=== PATIENT | female | born 1965 | race Caucasian/White ===

== ENCOUNTER 2024-05-18 06:06 | Inpatient (IN) | payer BC, MEDICAID ==
[~2024-05-18] VITALS: Ht 160 cm; Wt 100.7 kg
[~2024-05-18 06:06] MED LIST: ALEN35TA18 PO; BACL10TA PO; CYA100I IM; CYAN100T7 PO; DIPH50TA15 PO; DOCU-94 PO; ERGO400T PO; ESCI1TAB37 PO; FEXO-226 PO; FOLI-119 PO; GABA800T97 PO; HYDR-4798 PO; HYDR200T36 PO; HYDR25TA4 PO; LEUC5TAB PO; METH2.5T PO; MONT-8 PO; OLME20TA53 PO; PANT40TA2 PO; PRAV20TA3 PO; SEMA0.25 SC; TROS60CA4 OR; UPAD15TA PO
[2024-05-18] MEDS: TRANEXAMIC ACID 20 ML ONE (06:38)
[2024-05-18] MEDS: LIDOCAINE W/ EPINEPHRINE 1% 20ML VIAL ONE (06:38)
[2024-05-18] MEDS: MAGNESIUM SULFATE 1GM/100ML 100 ML IV ONE (06:46)
[2024-05-18] MEDS: LIDOCAINE 4MG/ML IV SOLN 500 ML IV ONE (06:46)
[2024-05-18] MEDS ORDERED: KETAMINE 50mg/ML 1ml syringe ONE (07:02)
[2024-05-18] MEDS ORDERED: fentaNYL CITRATE 100 MCG/2 ML VL ONE (07:02)
[2024-05-18] MEDS ORDERED: ONDANSETRON HCL 4 MG/2 ML VIAL ONE (07:03)
[2024-05-18] MEDS ORDERED: DexAMETHasone SOD PHOS 10MG/1ML VIAL INJ ONE (07:03)
[2024-05-18] MEDS ORDERED: GLYCOPYRROLATE 0.2 MG/ML 1ML VIAL ONE (07:04)
[2024-05-18] MEDS ORDERED: ROCURONIUM 10MG/ML 10ML VIAL IV ONE (07:04)
[2024-05-18] MEDS ORDERED: PROPOFOL 10 MG/ML 20 ML IV ONE ×2 (07:04→09:17)
[2024-05-18] MEDS: GABAPENTIN 400 MG CAP PO ONE (07:30)
[2024-05-18] MEDS: oxyCODONE ER 20 MG TAB PO ONE (07:30)
[2024-05-18] MEDS: ACETAMINOPHEN IV 1000 MG/100ML (10MG/ML) IV ONE (07:30)
[2024-05-18] MEDS ORDERED: SODIUM CHLORIDE LOCK 10 ML ONE ×3 (07:38→08:21)
--- NOTE | 2024-05-18 07:39 | DVHHP2 ---
Admitting Diagnosis: Cervical spinal stenosis History of Present Illness History Source: Patient, Old Records Exam Limitations: No limitations HPI Patient has had prior surgery with Dr. Fan in 2019 to her C-spine. Symptoms for the surgery were extreme pain to her bilateral arms shoulders. Currently she is experiencing numbness and tingling bilateral arms and hands left greater than right. She is also experiencing bilateral leg neuropathies Home Meds Reported Medications Semaglutide (Wegovy) Unknown Strength Inj, SC, INJ 05/12/24 Semaglutide (Wegovy) 0.25 Mg/0.5 Ml Inj, 0.25 MG SC, INJ 05/12/24 Vitamin B12 (Vitamin B-12) Unknown Strength Ij, IM, INJ 05/12/24 Cyanocobalamin (Vitamin B12) 100 Mcg Tab, 100 MCG PO, TAB 05/12/24 Methotrexate (Methotrexate) 2.5 Mg Tab, 8 TAB PO QWEEKLY, #32 TAB 2 Refills 05/12/24 Alendronate Sodium (Alendronate Sodium) 35 Mg Tab, 1 TAB PO QWEEKLY, #4 TAB 11 Refills 05/12/24 Fexofenadine Hcl (Fexofenadine Hcl) 60 Mg Tab, 180 MG PO DAILY for 30 Days, MG 05/12/24 Upadacitinib (Rinvoq) 15 Mg Tab, 15 MG PO, TAB 05/12/24 Docusate Sodium (Colace) 100 Mg Cap, 1 CAP PO BID, #30 CAP 05/12/24 Pravastatin Sodium (PRAVACHOL TABLET) Unknown Strength Tb, PO DAILY, #30 TAB 5 Refills 05/12/24 Trospium Chloride (TROSPIUM CHLORIDE ER) Unknown Strength Cap, OR, CAP 05/12/24 Ergocalciferol (VITAMIN D2) Unknown Strength Tab, PO, TAB 05/12/24 Montelukast Sodium (MONTELUKAST SODIUM) 10 Mg Tab, 1 TAB PO DAILY, #30 TAB 5 Refills 05/12/24 Folic Acid (Folic Acid) 1 Mg Tab, 1 MG PO DAILY for 30 Days, MG 05/12/24 Leucovorin Calcium (Leucovorin Calcium) 5 Mg Tab, 5 MG PO QWEEKLY, TAB 05/12/24 Pantoprazole Sodium Sesquihydr (Protonix) 40 Mg Tab, 40 MG PO DAILY, #30 TAB 05/12/24 Hydroxychloroquine Sulfate (Hydroxychloroquine Sulfat) 200 Mg Tab, 200 MG PO for 30 Days, MG 05/12/24 Escitalopram Oxalate (ESCITALOPRAM OXALATE) 20 Mg Tab, 40 MG PO DAILY, TAB 05/12/24 Gabapentin (Gabapentin) 800 Mg Tab, 800 MG PO TID, TAB 05/12/24 Baclofen (Baclofen) 10 Mg Tab, 20 MG PO TID for 30 Days, MG 05/12/24 Hydrocodone-Acetaminophen (Hydrocodone Bitartrate/AC 10-325 mg) 1 Tab Tab, 1 TAB PO, TAB 05/12/24 Diphenhydramine Hcl (Sleep) (DIPHENHYDRAMINE HCL MAXIM) 50 Mg Tab, 50 MG PO, TAB 05/12/24 Hydrochlorothiazide (Hydrochlorothiazide) 25 Mg Tab, 25 MG PO DAILY for 30 Days, MG 05/12/24 Olmesartan Medoxomil (Benicar) 20 Mg Tab, 1 TAB PO DAILY, #30 TAB 5 Refills 05/12/24 Chief Complaint of Abdominal/F: Other (Denies complaints) Chest Pain Chief Complaint: Other (Denies complaints) Quality of Neck Pain: Aching, Other (Patient complaining of pain to the midline C-spine area with radiation to the C 6-7 pattern hands are equally strong with suction roller however she fatigues quickly) Initial Comment No complaints at this time Initial Comment Occasional headaches Initial Comment Within normal limits Initial Comment Not applicable Initial Comment No complaints Chief Complaint of Hip/Injury: Other (No complaints at this time) Chief Complaint for Wheezing/A: Other (Patient is speaking full sentences in no distress) Dyspnea Chief Complaint: Other (Patient not demonstrating any shortness of breath at this time) Neuro Symptoms/Deficit Chief C: Other (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 complaints of bilateral lower leg neuropathies) Cognition/Gait Neuro Symptoms/: Alert, Oriented x 3 Past Medical History Cardiac: No pertinent Hx Pulmonary: Asthma Central Nervous System: No pertinent Hx GI: Other (Appendectomy, cholecystectomy) Hemotology/Oncology: No pertinent Hx Hepatobiliary: No pertinent Hx Psychiatric: Depression, Other (PTSD, depression) Rheumotologic: Fibromyalgia, Rheumatoid arthritis Infectious Disease: No peritnent Hx ENT: Other (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, deviated septum surgery left) Endocrine: Osteoporosis Dermatology: No pertinent Hx Past Surgical History: Appendectomy, Cholecystectomy, Hysterctomy, Other (Left shoulder surgery prior, left vocal cord injury, vaginal wall repair bladder sling tonsil removal) Family History: No pertinent Hx Smoker: Quit (Seven years ago she was smoker for 35 years about a half a pack a day), Other (Patient quit seven years ago) Alocohol: None Drugs: None Lives with: With family Domestic Violence: Neg Review of Systems Constitutional: No symptom reported Ears, Nose, & Throat: No symptom reported Eyes: No symptom reported Pulmonary/Respiratory: No symptom reported, Other (No respiratory problems) Cardiovascular: No symptom reported Gastrointestinal: No symptom reported Genitourinary: No symptom reported Musculoskeletal: No symptom reported Skin: No symptom reported Psychiatric: No symptom reported Endocrine: No symptom reported Hemotologic/Lymphatic: No symptom reported H&P Exam General Appeara: Well developed, Well nourished, Normal Appearance Head Exam: Normal inspection Neck Exam: Normal inspection, Non-tender, Normal alignment Eye Exam: bilateral eye Normal inspection, bilateral eye PERRL, bilateral eye EOMI Ear Exam: bilateral ear Auricle normal, bilateral ear Canal normal, bilateral ear TM normal Nasal Exam: Normal inspection Mouth: Normal Inspection Pulmonary/Respiratory: Normal inspection Cardiovascular/Chest: Normal inspection, Regular rate, Normal Rhythm Abdominal Exam: Soft, No tenderness (No complaints of any abdominal issues) Rectal Exam: Deferred Back Exam: Normal inspection Pelvic Exam: Not done Shoulder Exam: Normal inspection Elbow/Forearm Exam: Normal inspection Wrist Exam: Normal inspection Hand Exam: Normal inspection, Other (Numbness two fingers on the left side) Hip exam: Normal inspection, Non-tender, Normal range of motion Legs: bilateral leg non-tender, bilateral leg normal inspection, bilateral leg normal range of motion, bilateral leg no evidence of injury Knees: bilateral knee non-tender, bilateral knee normal inspection, bilateral knee normal range of motion, bilateral knee no evidence of injury Ankle Exam: bilateral ankle Normal inspection, bilateral ankle Non-tender, bilateral ankle Normal range of motion, bilateral ankle No evidence of injury Foot: bilateral foot non-tender, bilateral foot normal inspection, bilateral foot normal range of motion, bilateral foot no evidence of injury Tendon/ Neuro: Normal sensation, Normal motor function, Normal tendon functions [employer] Exam: Normal hearing, Normal speech, PERRL Motor/Sensory: Normal sensory function, Normal motor function Neuro/Mental St: Alert, Oriented Appearance: Appropriate appearance, Appropriate insight Eye contact/ Speech: Cooperative, Good eye contact, Normal speech Thoughts/Psych: Normal thought pattern Skin Exam: Normal inspection, Normal color, Warm/dry Lymphatic: Normal inspection Wounds No wounds seen, none reported Labs/Xrays Imaging reviewed from outside source by Dr. Thong clayton Assessment/Plan Problem List: (1) Cervical stenosis of spinal canal (2) Muscle spasms of neck Primary Diagnosis Cervical stenosis Admitting Diagnosis: Cervical stenosis, patient is arriving for elective C-spine surgery with Dr. Thong Clayton cervical 3-4, C6-7 anterior cervical diskectomy and fusion Plan Cervical stenosis, patient is arriving for elective C-spine surgery with Dr. Thong Clayton cervical 3-4, C6-7 anterior cervical diskectomy and fusion. The patient was informed of the risks and benefits of the procedure. These include but are not limited to complications of anesthesia, postoperative infection, incomplete relief of symptoms, recurrence of symptoms, damage to blood vessels, nerves and tendons, deep venous thrombosis, pulmonary embolism and possible need for repeat surgery in the future. The risks/benefits/alternatives of surgery including but not limited to pain, bleeding, infection, damage to surrounding soft tissue structures, need for reoperation or future surgery, persistent pain/disability/deformity, pseudoarthrotsis, bone graft collapse or extrusion of interbody device, instrumentation failure, need for instrumentation removal, dural tear, temporary or permanent nerve root damage, paralysis, stroke, deep vein thrombosis, pulmonary embolism, and any associated anesthetic risk (dry mouth, sore throat, dental damage, myocardial infarction, respiratory depression, blindness) were described to the patient in detail and the patient wishes to proceed. No guarantee of surgical outcome/improvement was implied. All of the questions were answered thoroughly and consents were obtained. We will obtain all the necessary preop tests in order for the patient to be cleared medically. Call with questions Job Sanchez [facility] Orthopaedic Spine Surgery nurse practitioner For Dr Garry Clayton Patient was examined, chart reviewed, labs evaluated, and diagnostic studies and findings analyzed. Case was discussed with Dr. Thong Clayton who formulated the plan of care. This medical document was created using an electronic medical record system with [employer] dictation system. Although this document has been carefully reviewed, there might still be some phonetic and typographical errors. These areas are purely typographical due to imperfections of the software programs, and do not reflect any compromise in the patient's medical care. Plan discussed with: Patient Code Visit Code Visit Total Time (mins): 25 (Patient was examined, risks and benefits were explained all questions were answered patient is comfortable signing of the consent and acceptable to receive blood.) CLIFF SANCHEZ NP May 18, 2024 07:39
[2024-05-18] MEDS: LIDOCAINE 2%HCL (LOCAL ANESTH.) INJ 10ml MDV ONE (07:43)
[2024-05-18] MEDS: VANCOMYCIN HCL 1000 MG VL ONE (07:44)
[2024-05-18] MEDS ORDERED: ePHEDrine SULFATE 50 MG/ML AMP ONE (08:21)
[2024-05-18] MEDS ORDERED: ESMOLOL HCL 10 ML IV ONE (09:38)
[2024-05-18] MEDS: CLINDAMYCIN 600MG IV 0 ML IV ONE (10:05)
[2024-05-18] MEDS: CIPROFLOXACIN 400MG/200ML 400 ML IV ONE (10:07)
[2024-05-18] MEDS ORDERED: NITROGLYCERIN 0.4 MG SL TAB SL PRN (10:15)
[2024-05-18] MEDS ORDERED: ONDANSETRON HCL 4 MG/2 ML VIAL IV PRN ×2 (10:15→10:45)
[2024-05-18] MEDS ORDERED: MORPHINE SULFATE INJ 2 MG/ml SYRG IV PRN (10:15)
--- NOTE | 2024-05-18 10:21 | DVHOP2 ---
Operative Report - 2 Report Details Date: 05/18/24 Preop Diagnosis: cervical spinal stenosis with a transitional syndrome proximal to prior cervical spine surgery Postop Diagnosis: same as pre op Surgeon: Thong Osei MD Anesthesiologist: dat werner Anesthesia: General Consent: The patient was informed of the risks and benefits of the procedure. These include but are not limited to complications of anesthesia, postoperative infection, incomplete relief of symptoms, recurrence of symptoms, damage to blood vessels, nerves and tendons, deep venous thrombosis, pulmonary embolism and possible need for repeat surgery in the future. 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 Cervical Degenerative Disk Disease and Spinal Stenosis Causing incapacitating neck pain, radiculopathy and progressive neurologic deficit Procedure: Cervical 3 to 4 anterior cervical discectomy with Cervical 3-4 foraminotomies and facetectomies to decompression the spinal canal and Cervical 4 nerve roots Cervical 4 to 5 anterior cervical discectomy with Cervical 4-5 foraminotomies and facetectomies to decompression the spinal canal and Cervical 5 nerve roots Cervical 3-5 anterior cervical Fusion Cervical 3-5 anterior cervical instrumentation with freestanding cages Cervical 3-4 placement of allograft prosthetic device Cervical 4-5 placement of allograft prosthetic device Microscope for micro dissection Surgeon: Thong Osei MD Anesthesia: General Assist: Chiquis Pickett PATIENT PORTAL CONCIERGE Fluids and EBL: see anesthesia note Procedure Note: The patient was seen in the Pre-anesthesia Care Unit and the site of the incision was initialed by me with a felt tipped marker. All questions by the patient were answered to the satisfaction of the patient and the chart was reviewed. The patient was taken to the operating room and placed supine on the [facility] Flat top table. General anesthesia was induced. Neuromonitoring leads were placed. A rolled towel was placed between the shoulder blades to hyperextend out the chest which will allow better exposure of the cervical spine. Halter traction to 10 pounds was placed. The arms were padded and adducted to the patients side making sure all pulses in the hands were present. Tape traction was undertaken on the shoulders to give us better radiographic exposure of the distal cervical spine. A gel-pad was placed under the occiput and 5 degrees of extension was placed on the neck without adverse effects to the patient. The anterior neck was prepped and draped. Pre-operative antibiotics were given 30 minutes prior to the start of the procedure. A c-arm fluoroscope was used to shannan out the incision site. At this time, a time out was taken per usual protocol. Next an incision was made through the skin with a 15 blade scalpel through the subcutaneous tissue down to the platysma. Self-retainers were placed. The platysma was incised along the longitudinal border with a Metzenbaum scissors. Blunt dissection was made through the deep cervical and pre-tracheal fascia taking care to protect the carotid sheath laterally and the Trachea/esophagus medially. The dissection was carried down to the prevertebral fascia. Any crossing vessels were ligated using a vascular clip or coagulated with a bovie. An esophageal retractor was next used to retract the trachea/esophagus and a bent [address] through the anterior annulus of the cervical disk and a lateral C-arm fluoroscopic image was taken to confirm that we were at the correct level. Next, bovie electrocautery was used to expose the bones of cervical 3,4,5, and bipolar electrocuatery was used to lift up the Longus colli and capitus muscles. Black-Belt Self Retainers were used to retract the longus colli and capitus muscles bilaterally as well as the trachea/esophagus to the right and the carotid sheath to the left. Smooth thin Black-Belt retractors were placed proximally and distally and a needle was placed again in the anterior annulus of the disk and an image taken to confirm the correct level. At this point, the microscope was wheeled in and an 11 blade scalpel incised the anterior annulus of the cervical 3/4 [facility] Next, straight and curved curettes removed the remainder of the disks all the way down to the posterior longitudinal ligament. Carefully, a Kerison number one rongeur incised the posterior longitudinal ligament at the lateral end of the above disks and using a micro, blunt tip nerve hook to separate the posterior longitudinal ligament from the dura, alternating 1 mm and 2 mm Kerison rongeurs removed the posterior longitudinal ligament. Next, Kerison 1mm and 2 mm rongeurs were alternated to get under the uncinate processes and undercut them to perform foraminotomies and factectomies at the ce rvical 3/4 lecel to decompress the central canal and cervical 4 root. Upon preparation of this disc, C arm fluoroscopy immediately revealed the pesence of a spondylolisthesis which would require stabilization of this level. This finding was not seen pre operatively ; hence the correct intra-operative decision mandated performing the acdf from c3-5 levels Therefore, the C4/5 d iscectomy was performed like above for the C3/4 level without difficulty. Next the microscope was wheeled away and the c-arm fluoroscope was wheeled into the field and a lateral image was obtained. Increasing size graft trials were used starting at a 5 mm thick size until the proper tension in the disk space and height gnosticist obtained. We then placed final free standing cages at C3/4 and 4/5. Satisfactory placement was confirmed in the AP and lateral views using a C-arm fluoroscope. Copious irrigation of the wound with sterile saline and all bleeding was controlled before closure initiated. At this point, a 10 Indonesian [address] Drain was place deep to the Platysma muscle and the Platysma was approximated with one interrupted 0-Vicryl suture. The subcutaneous tissue was closed with interrupted 2-0 vicryl sutures and the skin was closed with adia. Sterile dressings were placed and a cervical collar placed, the patient extubated, transferred to the stretcher and taken to the Recovery Room in unremarkable condition. Other Notes: Following the case, in PACU, the patient had placement of a [place] J equivalent cervical collar and external bone stimulator Condition Stable Disposition Still a Patient THONG OSEI MD May 18, 2024 10:21
[2024-05-18 10:33] VITALS: PULSE 87; RESP 10
[2024-05-18] MEDS ORDERED: oxyCODONE HCL 5MG TAB PO PRN (10:45)
[2024-05-18] MEDS ORDERED: NALOXONE HCL 0.4 MG/ML VIAL IV PRN (10:45)
[2024-05-18] MEDS ORDERED: hydrALAZINE HCL 20 MG/ML VL IV PRN (10:45)
[2024-05-18] MEDS ORDERED: FLUMAZENIL 0.1 MG/ML INJ 10ML MDV IV PRN (10:45)
[2024-05-18] MEDS ORDERED: fentaNYL CITRATE 100 MCG/2 ML VL IV PRN (10:45)
[2024-05-18] MEDS ORDERED: ePHEDrine SULFATE 50 MG/ML AMP IV PRN (10:45)
[2024-05-18] MEDS: HYDROmorphone HCL 2 MG/ML VL/or syr IV PRN (11:30)
[2024-05-18 13:50] VITALS: BP 112/54; PULSE 86; RESP 16; RESP 20; TEMP 97.4; O2SAT 96
[2024-05-18] MEDS ORDERED: ceFAZolin 1GM/50ML 50 ML IV SCH (14:00)
[2024-05-18] MEDS ORDERED: VANCOMYCIN PER PHARMACY 0 MG IV SCH (14:15)
--- NOTE | 2024-05-18 14:57 | DVH ---
CLINICAL INDICATION: C3-4,C6-7 DESCECTOMY/FUSION TECHNIQUE: 9 radiographic views of the intraoperative images of cervical spine surgery. were obtained . Comparison: None FINDINGS/IMPRESSION: Intervertebral spacers are noted at C3-4 C4-5 C5-6, and C6-7. Total fluoro time 17.7 seconds Cumulative dose: 4.33 mGy
--- NOTE | 2024-05-18 14:57 | DVH ---
C-ARM FLUOROSCOPY: PROCEDURE: cervical dissectomy and fusion FLUOROSCOPY TIME: 17.7 sec DAP: 4.33 mgy FINDINGS: Spot intraoperative C arm radiographs demonstrating cervical disectormy and fusion . IMPRESSION: Please refer to surgical report for detailed findings.
[2024-05-18 16:28] VITALS: BP 117/57; PULSE 91; RESP 18; TEMP 97.9; O2SAT 100
[2024-05-18] MEDS: CYCLOBENZAPRINE HCL 10 MG TAB PO SCH (16:58)
[2024-05-18] MEDS: HYDROcodone-ACET 10/325MG TAB PO PRN (17:06)
[2024-05-18] MEDS: MORPHINE SULFATE INJ 2 MG/ml SYRG IV PRN (18:05)
[2024-05-18] MEDS: D5W/SOD CHLO 0.9% 1,000 ML IV SCH (18:16)
[2024-05-18 20:00] VITALS: PULSE 108; RESP 16; O2SAT 92
[2024-05-18 21:00] VITALS: BP 106/51; PULSE 108; RESP 16; TEMP 97.8; O2SAT 92
[2024-05-18] MEDS: DOCUSATE SOD 100 MG CAP PO SCH (21:27)
[2024-05-18] MEDS: VANCOMYCIN 1GM/250ML KIT 250 ML IV SCH (21:29)
[2024-05-19] VITALS (8 sets, daily range): BP systolic 102–106; BP diastolic 51–62; PULSE 86–101; RESP 14–90; TEMP 98.1–99.6; O2SAT 90–96
--- NOTE | 2024-05-19 11:55 | DVHPN2 ---
CNM Labor Progress Note Date and Time Seen Date Seen: May 18, 2024 Lab Results Lab Results Vital Signs Date Time Temp Pulse Resp B/P (MAP) Pulse Ox O2 Delivery O2 Flow Rate FiO2 05/19/24 13:07 98.3 86 16 103/54 (70) 92 98.3 05/19/24 08:00 Room Air* 0 21 I & O 05/19/24 07:00 Intake Total 1010 ml Output Total 200 ml Balance 810 ml Intake Oral 760 ml IV Total 250 ml Output Urine Total 200 ml # Voids 3 Current Medications Medications (Trade) Dose Ordered Sig/Elijah Start Time Stop Time Status Last Admin Dose Admin Acetaminophen (Ofirmev) 1,000 mg ONCE ONCE 05/18/24 06:45 05/18/24 06:46 DC 05/18/24 07:30 1,000 MG Gabapentin (Neurontin Capsule) 400 mg ONCE ONCE 05/18/24 06:45 05/18/24 06:46 DC 05/18/24 07:30 400 MG Oxycodone HCl (OxyCONTIN ER Tablet) 20 mg ONCE ONCE 05/18/24 06:45 05/18/24 06:46 DC 05/18/24 07:30 20 MG Dextrose/Sodium Chloride 1,000 ml @ 100 mls/hr Q10H 05/18/24 10:15 05/18/24 18:16 100 MLS/HR Ondansetron HCl (Zofran) 4 mg Q4HP PRN 05/18/24 10:15 Acetaminophen (Tylenol Tablet) 650 mg Q6HP PRN 05/18/24 10:15 Acetaminophen/ Hydrocodone Bitart (Ary 10/325MG Tab) 1 tab Q6HP PRN 05/18/24 10:15 05/19/24 11:11 1 TAB Morphine Sulfate 1 mg Q4HP PRN 05/18/24 10:15 05/19/24 06:03 1 MG Cyclobenzaprine HCl (Flexeril Tablet) 10 mg TID 05/18/24 14:00 05/19/24 12:54 DC 05/19/24 05:59 10 MG Docusate Sodium (Colace Capsule) 100 mg BID 05/18/24 22:00 05/19/24 10:32 100 MG Cefazolin Sodium 50 ml @ 100 mls/hr Q8HR 05/18/24 14:00 05/18/24 14:03 DC Nitroglycerin (Ntrostat Sublingual) 0.4 mg Q5MINP PRN 05/18/24 10:15 Morphine Sulfate 2 mg Q30M PRN 05/18/24 10:15 Ondansetron HCl (Zofran) 4 mg ONCE PRN 05/18/24 10:45 05/18/24 10:51 DC Naloxone HCl (Narcan) 0.4 mg Q10M PRN 05/18/24 10:45 05/18/24 11:06 DC Flumazenil (Romazicon Injection) 0.2 mg ONCE PRN 05/18/24 10:45 05/18/24 10:51 DC Hydralazine HCl (Apresoline Injection) 5 mg Q10M PRN 05/18/24 10:45 05/18/24 11:36 DC Ephedrine Sulfate (ePHEDrine SULFATE) 10 mg Q10M PRN 05/18/24 10:45 05/18/24 11:26 DC Fentanyl Citrate 25 mcg Q1HP PRN 05/18/24 10:45 05/18/24 16:00 DC Hydromorphone HCl (Dilaudid Injection) 0.5 mg Q10M PRN 05/18/24 10:45 05/18/24 16:00 DC 05/18/24 15:43 0.5 MG Oxycodone HCl 10 mg ONCE PRN 05/18/24 10:45 05/18/24 16:00 DC Vancomycin HCl 0 ml @ 0 mls/hr UD 05/18/24 14:15 05/18/24 16:10 DC Vancomycin HCl 250 ml @ 250 mls/hr Q12HR 05/18/24 22:00 05/19/24 11:01 DC 05/19/24 10:33 250 MLS/HR Throat Lozenges (Cepastat Lozenges) 1 efra Q2HP PRN 05/19/24 13:00 05/19/24 14:16 1 EFRA Baclofen (Liorisal Tablet) 20 mg Q8HR 05/19/24 14:00 05/19/24 14:15 20 MG SHOLA QUINTANILLA MD May 19, 2024 11:55
--- NOTE | 2024-05-19 12:15 | DVHPN2 ---
Progress Note - Surgical Date Seen: May 19, 2024 Post op day Post op day: 1 Subjective Patient reports: No new complaints, Feels better Review of Systems: HEENT:Normal, CVS:Normal, RESPIRATORY:Normal, GI:Normal, :Normal, MSK:Normal, NEURO:Normal Objective Vital signs Vital Sign Date Time Temp Pulse Resp B/P (MAP) Pulse Ox O2 Delivery O2 Flow Rate FiO2 05/19/24 09:09 98.1 86 15 106/56 (73) 92 98.1 05/18/24 20:00 Room Air* 0 21 Total Intake and Output 05/18/24 05/18/24 05/19/24 15:00 23:00 07:00 Intake Total 460 ml 550 ml Output Total 200 ml Balance -200 ml 460 ml 550 ml Medications Current Medications Medications Dose Ordered Sig/Elijah Route Start Time Stop Time Status Last Admin Dose Admin Dextrose/Sodium Chloride 1,000 ml @ 100 mls/hr Q10H IV 05/18/24 10:15 05/18/24 18:16 100 MLS/HR Ondansetron HCl 4 mg Q4HP PRN IV 05/18/24 10:15 Acetaminophen 650 mg Q6HP PRN PO 05/18/24 10:15 Acetaminophen/ Hydrocodone Bitart 1 tab Q6HP PRN PO 05/18/24 10:15 05/19/24 11:11 1 TAB Morphine Sulfate 1 mg Q4HP PRN IV 05/18/24 10:15 05/19/24 06:03 1 MG Cyclobenzaprine HCl 10 mg TID PO 05/18/24 14:00 05/19/24 05:59 10 MG Docusate Sodium 100 mg BID PO 05/18/24 22:00 05/19/24 10:32 100 MG Nitroglycerin 0.4 mg Q5MINP PRN SL 05/18/24 10:15 Morphine Sulfate 2 mg Q30M PRN IV 05/18/24 10:15 Examination: GENERAL:Normal, HEENT:Normal, NECK:Normal (No swelling at surgical site to left anterior neck), LUNGS:Normal, CVS:Normal, ABDOMEN:Normal, MSK:Normal, SKIN:Normal (Wound edges well approximated drain is intact 2 mm of drainage in the past 24 hours since surgery. Drain discontinued today patient tolerated well), NEURO:Normal (Patient states she has improvement in the numbness in her hands and fingers), :Normal Problem List/Assessment/Plan Problems: (1) Postoperative pain after spinal surgery (2) Muscle spasms of neck Assessment and Plan Patient is progressing well she is experiencing expected postoperative pain, drain was discontinued today. Patient has been ambulating she is tolerating a diet she has no nausea with p.o. fluids. Muscle relaxers changed from Flexeril 10 mg two baclofen 20 mg 3 times a day Patient is progressing to discharge Call with questions Job Pickett [facility] Orthopaedic Spine Surgery nurse practitioner For Dr aGrry Osei Patient was examined, chart reviewed, labs evaluated, and diagnostic studies and findings analyzed. Case was discussed with Dr. Thong Osei who formulated the plan of care. This medical document was created using an electronic medical record system with [employer] dictation system. Although this document has been carefully reviewed, there might still be some phonetic and typographical errors. These areas are purely typographical due to imperfections of the software programs, and do not reflect any compromise in the patient's medical care. My Orders My Orders Orders - CLIFF PICKETT NP Procedure Category Date Status Time * Internal Medicine CONS 05/19/24 Transmitted Consult Plan discussed with Plan discussed with: Patient, Other (Summer RN extension [phone]) Visit Coding Surgery Date of Service if different f: May 19, 2024 Billing Provider: CLIFF PICKETT NP Surgery Visit Codes: NOT BILLABLE CLIFF PICKETT NP May 19, 2024 12:15
[2024-05-19] MEDS: BACLOFEN 10 MG TAB PO SCH (14:15)
[2024-05-19] MEDS: THROAT LOZENGES(CEPASTAT) MT PRN (14:16)
--- NOTE | 2024-05-19 14:33 | DVHINCON2 ---
Date Seen: May 19, [address] Dr[address] Thong Osei. Reason for Consultation Medical management History of Present Illness 58-year-old female with a known history of hypertension, anxiety disorder, asthma, rheumatoid arthritis was brought in by spine surgery for elective procedure for C-spine surgery. Patient had symptoms of bilateral shoulder pain left hand numbness as well as bilateral lower extremity weakness. The patient has a previous history of C-spine surgery at C6-7 in 2019. Patient currently status post C3/4/5 level surgery. Patient clinic complaining of minimal pain in the neck. Past Medical History Hypertension Anxiety disorder Rheumatoid arthritis Past Surgical History Previous history of C-spine surgery at C6/7 level C-spine surgery at level C3/4/5 Allergies: Coded Allergies: Tofacitinib (Unverified Allergy, Severe, facial swelling , 05/12/24) Metronidazole (Verified Allergy, Intermediate, N/V, Hives, 05/12/24) Penicillins (Unverified Allergy, Intermediate, Unknown, 05/12/24) Uncoded Allergies: sulfa (Allergy, Intermediate, Hives, 05/12/24) Home Meds Reported Medications Semaglutide (Wegovy) Unknown Strength Inj, SC, INJ 05/12/24 Semaglutide (Wegovy) 0.25 Mg/0.5 Ml Inj, 0.25 MG SC, INJ 05/12/24 Vitamin B12 (Vitamin B-12) Unknown Strength Ij, IM, INJ 05/12/24 Cyanocobalamin (Vitamin B12) 100 Mcg Tab, 100 MCG PO, TAB 05/12/24 Methotrexate (Methotrexate) 2.5 Mg Tab, 8 TAB PO QWEEKLY, #32 TAB 2 Refills 05/12/24 Alendronate Sodium (Alendronate Sodium) 35 Mg Tab, 1 TAB PO QWEEKLY, #4 TAB 11 Refills 05/12/24 Fexofenadine Hcl (Fexofenadine Hcl) 60 Mg Tab, 180 MG PO DAILY for 30 Days, MG 05/12/24 Upadacitinib (Rinvoq) 15 Mg Tab, 15 MG PO, TAB 05/12/24 Docusate Sodium (Colace) 100 Mg Cap, 1 CAP PO BID, #30 CAP 05/12/24 Pravastatin Sodium (PRAVACHOL TABLET) Unknown Strength Tb, PO DAILY, #30 TAB 5 Refills 05/12/24 Trospium Chloride (TROSPIUM CHLORIDE ER) Unknown Strength Cap, OR, CAP 05/12/24 Ergocalciferol (VITAMIN D2) Unknown Strength Tab, PO, TAB 05/12/24 Montelukast Sodium (MONTELUKAST SODIUM) 10 Mg Tab, 1 TAB PO DAILY, #30 TAB 5 Refills 05/12/24 Folic Acid (Folic Acid) 1 Mg Tab, 1 MG PO DAILY for 30 Days, MG 05/12/24 Leucovorin Calcium (Leucovorin Calcium) 5 Mg Tab, 5 MG PO QWEEKLY, TAB 05/12/24 Pantoprazole Sodium Sesquihydr (Protonix) 40 Mg Tab, 40 MG PO DAILY, #30 TAB 05/12/24 Hydroxychloroquine Sulfate (Hydroxychloroquine Sulfat) 200 Mg Tab, 200 MG PO for 30 Days, MG 05/12/24 Escitalopram Oxalate (ESCITALOPRAM OXALATE) 20 Mg Tab, 40 MG PO DAILY, TAB 05/12/24 Gabapentin (Gabapentin) 800 Mg Tab, 800 MG PO TID, TAB 05/12/24 Baclofen (Baclofen) 10 Mg Tab, 20 MG PO TID for 30 Days, MG 05/12/24 Hydrocodone-Acetaminophen (Hydrocodone Bitartrate/AC 10-325 mg) 1 Tab Tab, 1 TAB PO, TAB 05/12/24 Diphenhydramine Hcl (Sleep) (DIPHENHYDRAMINE HCL MAXIM) 50 Mg Tab, 50 MG PO, TAB 05/12/24 Hydrochlorothiazide (Hydrochlorothiazide) 25 Mg Tab, 25 MG PO DAILY for 30 Days, MG 05/12/24 Olmesartan Medoxomil (Benicar) 20 Mg Tab, 1 TAB PO DAILY, #30 TAB 5 Refills 05/12/24 Current Medications Current Medications Medications (Trade) Dose Ordered Sig/Elijah Route PRN Reason Start Time Stop Time Status Last Admin Docusate Sodium (Colace Capsule) 100 mg BID PO 05/18/24 22:00 05/19/24 10:32 Vancomycin HCl 250 ml @ 250 mls/hr Q12HR IV 05/18/24 22:00 05/19/24 11:01 DC 05/19/24 10:33 Throat Lozenges (Cepastat Lozenges) 1 shawn Q2HP PRN MT FOR SORE THROAT 05/19/24 13:00 05/19/24 14:16 Baclofen (Liorisal Tablet) 20 mg Q8HR PO 05/19/24 14:00 05/19/24 14:15 Review of Systems Twelve review of system are negative cm above. Vital Signs Vital Signs Date Time Temp Pulse Resp B/P (MAP) Pulse Ox O2 Delivery O2 Flow Rate FiO2 05/19/24 13:07 98.3 86 16 103/54 (70) 92 98.3 05/19/24 08:00 Room Air* 0 21 Physical Exam HEENT pupils are reactive Neck is supple CV is S1-S2 regular rate and rhythm Respiratory diminished BS over bases GI positive bowel sound Extremity no edema [employer] no motor deficit Assessment 68-year-old female with a known history of hypertension, anxiety disorder, rheumatoid arthritis, previous history of C-spine surgery presented to hospital for cervical myelopathy found to have 1. Cervical myelopathy status post C-spine surgery at C3 4 5 level postop day 1 2. Previous history of C-spine surgery at C6-7 level 3. Hypertension 4. anxiety disorder 5. Rheumatoid arthritis -pain meds as needed, physical therapy evaluation and treatment, discharge plan Problems(with codes): (1) Cervical stenosis of spinal canal Plan discussed with: Patient, Other Date of Service: May 19, 2024 Billing Provider: SHOLA QUINTANILLA MD Common Visit Codes: NOT BILLABLE SHOLA QUINTANILLA MD May 19, 2024 14:33
[2024-05-20 01:00] VITALS: BP 142/66; PULSE 103; RESP 18; TEMP 100.1; O2SAT 92
[2024-05-20] MEDS: ACETAMINOPHEN 325 MG TAB PO PRN (01:48)
[2024-05-20 05:00] VITALS: BP 125/65; PULSE 94; RESP 18; TEMP 99.3; O2SAT 94
[2024-05-20 08:00] VITALS: PULSE 91
[2024-05-20 08:30] VITALS: BP 112/78; PULSE 91; RESP 20; TEMP 98.5; O2SAT 94
[2024-05-20] MEDS ORDERED: BACL10TA PO (11:11)
[2024-05-20] MEDS ORDERED: HYDR-4798 PO (11:11)
[2024-05-20] MEDS ORDERED: DOCU-265 PO (11:11)
--- NOTE | 2024-05-20 11:14 | DVHDS2 ---
ASSESSMENT ASSESSMENT Hospital Course The patient arrived for a elective spine surgery with Dr. OSEI. Surgery went as planned with no complications. After a short stay in the PACU patient was admitted to the hospital for postoperative care and pain management over the course of 2 postoperative days the patient was able to tolerate a diet, ambulate independently, the pain has been managed with oral analgesics. The surgical site is well-approximated with sutures, some residual drainage continues from drain insertion sites after removal, however it is manageable with daily wound care and dressing changes. Some improvement to preoperative symptoms of extremities, strength and motion. There is new post operative pain that is localized to the surgical site. The patient will follow-up with Dr. Osei for wound check. Assessment same as pre op Problems: (1) Postoperative pain after spinal surgery Assessments: Pain is being managed with oral analgesia medications prescription provided (2) Cervical stenosis of spinal canal Assessments: Cervical stenosis resolve with surgery, patient in the postoperative state healing phase (3) Muscle spasms of neck Assessments: Postoperative muscle spasms controlled with baclofen 20 mg, patient reporting this is improve her spasms well. CLIFF SANCHEZ NP May 20, 2024 11:14
--- NOTE | 2024-05-20 11:15 | DVHDS2 ---
Discharge Summary Date of Admission May 18, 2024 at 10:12 Date of Discharge: May 20, 2024 Admitting Diagnosis Cervical stenosis Wounds: Left anterior neck, well approximated with sutures Steri-Strips. Drain site continues to have some residual serosanguineous leakage which will clear up over the next two days. Brief Hx & Hospital Course: The patient arrived for a elective spine surgery with Dr. OSEI. Surgery went as planned with no complications. After a short stay in the PACU patient was admitted to the hospital for postoperative care and pain management over the course of 2 postoperative days the patient was able to tolerate a diet, ambulate independently, the pain has been managed with oral analgesics. The surgical site is well-approximated with sutures, some residual drainage continues from drain insertion sites after removal, however it is manageable with daily wound care and dressing changes. Some improvement to preoperative symptoms of extremities, strength and motion. There is new post operative pain that is localized to the surgical site. The patient will follow-up with Dr. Osei for wound check. Operations or Procedures Procedure: Cervical 3 to 4 anterior cervical discectomy with Cervical 3-4 foraminotomies and facetectomies to decompression the spinal canal and Cervical 4 nerve roots Cervical 4 to 5 anterior cervical discectomy with Cervical 4-5 foraminotomies and facetectomies to decompression the spinal canal and Cervical 5 nerve roots Cervical 3-5 anterior cervical Fusion Cervical 3-5 anterior cervical instrumentation with freestanding cages Cervical 3-4 placement of allograft prosthetic device Cervical 4-5 placement of allograft prosthetic device Condition at Discharge: Good Final Diagnosis/Problems List Patient is in a postoperative state status post cervical spine surgery. Secondary Diagnosis: Postoperative muscle spasms controlled with baclofen 20 mg, patient reporting this is improve her spasms well. Discharge Disposition: Home Discharge Instruct/Medications Diet: See Comment Diet comment: Advanced your diet as tolerated maintain a soft consistency until you are able to swallow without any discomfort. Activity: Light activity Activity comment: Continue to move your neck through natural range of motion slowly and frequently. No excessive pulling or bending of your neck. When you sleep with a pillow please make sure it is not just under her head and needs to be under her shoulders cradling her head. Follow Up/Referral: Call [phone] for a appointment [id number] [place] [address], [address], [place] [id number] Medications: Muscle relaxers and pain medications will be sent to the pharmacy of her choice New Medications: Baclofen (Baclofen) 10 Mg Tab 20 MG PO Q8HR for 30 Days, #180 TAB Docusate Sodium (Docusate Sodium) 100 Mg Cap 100 MG PO BID for 30 Days, #60 CAP Hydrocodone-Acetaminophen (Hydrocodone Bitartrate/AC 10-325 mg) 1 Tab Tab 1 TAB PO Q6HP PRN for 14 Days, #56 TAB Continued Medications: Alendronate Sodium (Alendronate Sodium) 35 Mg Tab 1 TAB PO QWEEKLY, #4 TAB 11 Refills Baclofen (Baclofen) 10 Mg Tab 20 MG PO TID for 30 Days, MG Cyanocobalamin (Vitamin B12) 100 Mcg Tab 100 MCG PO, TAB Diphenhydramine Hcl (Sleep) (Diphenhydramine Hcl Maxim) 50 Mg Tab 50 MG PO, TAB Docusate Sodium (Colace) 100 Mg Cap 1 CAP PO BID, #30 CAP Ergocalciferol (Vitamin D2) Unknown Strength Tab Unknown Dose PO, TAB Escitalopram Oxalate (Escitalopram Oxalate) 20 Mg Tab 40 MG PO DAILY, TAB Fexofenadine Hcl (Fexofenadine Hcl) 60 Mg Tab 180 MG PO DAILY for 30 Days, MG Folic Acid (Folic Acid) 1 Mg Tab 1 MG PO DAILY for 30 Days, MG Gabapentin (Gabapentin) 800 Mg Tab 800 MG PO TID, TAB Hydrochlorothiazide (Hydrochlorothiazide) 25 Mg Tab 25 MG PO DAILY for 30 Days, MG Hydrocodone-Acetaminophen (Hydrocodone Bitartrate/AC 10-325 mg) 1 Tab Tab 1 TAB PO, TAB Hydroxychloroquine Sulfate (Hydroxychloroquine Sulfat) 200 Mg Tab 200 MG PO for 30 Days, MG Leucovorin Calcium (Leucovorin Calcium) 5 Mg Tab 5 MG PO QWEEKLY, TAB Methotrexate (Methotrexate) 2.5 Mg Tab 8 TAB PO QWEEKLY, #32 TAB 2 Refills Montelukast Sodium (Montelukast Sodium) 10 Mg Tab 1 TAB PO DAILY, #30 TAB 5 Refills Olmesartan Medoxomil (Benicar) 20 Mg Tab 1 TAB PO DAILY, #30 TAB 5 Refills Pantoprazole Sodium Sesquihydr (Protonix) 40 Mg Tab 40 MG PO DAILY, #30 TAB Pravastatin Sodium (Pravachol Tablet) Unknown Strength Tb Unknown Dose PO DAILY, #30 TAB 5 Refills Semaglutide (Wegovy) 0.25 Mg/0.5 Ml Inj 0.25 MG SC, INJ Semaglutide (Wegovy) Unknown Strength Inj Unknown Dose SC, INJ Trospium Chloride (Trospium Chloride Er) Unknown Strength Cap Unknown Dose OR, CAP Upadacitinib (Rinvoq) 15 Mg Tab 15 MG PO, TAB Vitamin B12 (Vitamin B-12) Unknown Strength Ij Unknown Dose IM, INJ 25 Discharge Statement: "Patient was advised to return to the ER or call 911 if any headaches, dizziness, shortness of breath, chest pain, abdominal pain, bleeding, fevers, or worsening of medical condition. Patient was counseled about treatment plan, medications, possible side effects, patientverbalized understanding. All questions were answered to the best of my ability. This discharge took greater then 30 minutes in planning, reviewing documentation, counseling the patient, and discussing with other team members." ASSESSMENT ASSESSMENT Hospital Course The patient arrived for a elective spine surgery with Dr. OSEI. Surgery went as planned with no complications. After a short stay in the PACU patient was admitted to the hospital for postoperative care and pain management over the course of 2 postoperative days the patient was able to tolerate a diet, ambulate independently, the pain has been managed with oral analgesics. The surgical site is well-approximated with sutures, some residual drainage continues from drain insertion sites after removal, however it is manageable with daily wound care and dressing changes. Some improvement to preoperative symptoms of extremities, strength and motion. There is new post operative pain that is localized to the surgical site. The patient will follow-up with Dr. Osei for wound check. Assessment Postoperative muscle spasms controlled with baclofen 20 mg, patientreporting this is improve her spasms well. Problems: (1) Postoperative pain after spinal surgery Assessments: Pain is being managed with oral analgesia medications prescription provided (2) Cervical stenosis of spinal canal Assessments: Cervical stenosis resolve with surgery, patient in the postoperative state healing phase (3) Muscle spasms of neck Assessments: Postoperative muscle spasms controlled with baclofen 20 mg, patient reporting this is improve her spasms well. CLIFF SANCHEZ NP May 20, 2024 11:15
[2024-05-20 12:46] VITALS: BP 112/78; PULSE 91; RESP 20; TEMP 98.5; O2SAT 94
[2024-05-20 13:26] VITALS: BP 117/62; PULSE 89; RESP 18; TEMP 98; O2SAT 96
== END 2024-05-20 14:00 | disposition home health service (06) | DRG 472 ==
LOC: SUR 06:06 → TELE 10:12 → TELE-EAST 13:34
PROVIDERS: ADMIT Orthopaedic Surgery; ATTEND Internal Medicine
PROC: 0RG20K0 Fusion of 2 or more Cervical Vertebral Joints with Nonautologous Tissue Substitute, Anterior Approach, Anterior Column, Open Approach (ICD-10-PCS; 2024-05-18)
PROC: 01N10ZZ Release Cervical Nerve, Open Approach (ICD-10-PCS; 2024-05-18)
PROC: 4A11X4G Monitoring of Peripheral Nervous Electrical Activity, Intraoperative, External Approach (ICD-10-PCS; 2024-05-18)
PROC: 0RB30ZZ Excision of Cervical Vertebral Disc, Open Approach (ICD-10-PCS; principal; 2024-05-18 07:46)
DX: M48.02 Spinal stenosis, cervical region (principal); M50.01 Cervical disc disorder with myelopathy, high cervical region; F41.9 Anxiety disorder, unspecified; I10 Essential (primary) hypertension; F43.10 Post-traumatic stress disorder, unspecified; M50.11 Cervical disc disorder with radiculopathy, high cervical region; M81.0 Age-related osteoporosis without current pathological fracture; M79.7 Fibromyalgia; M06.9 Rheumatoid arthritis, unspecified; J45.909 Unspecified asthma, uncomplicated; T48.1X5A Adverse effect of skeletal muscle relaxants [neuromuscular blocking agents], initial encounter; Y92.89 Other specified places as the place of occurrence of the external cause
CPT/HCPCS: 72040; 76000; 86850; 86900; 86901; 97110; 97116; 97163; G0378; J0131; J1100; J2003; J2405; J2704; J3490; J7042